=== PATIENT | female | born 1945 | race Caucasian/White ===

== ENCOUNTER → 2017-11-27 | Outpatient (CLI) | payer OTHER ==
[~2017-11-27] MED LIST: AVALIDE 300-121 EACH PO; CARVEDILOL6.25 MG PO; LEVO-T25 MCG PO; ZOCOR40 MG PO
== END | disposition home or self-care (01) ==
LOC: EKG 15:37
DX: K57.20 Diverticulitis of large intestine with perforation and abscess without bleeding (principal); Z01.810 Encounter for preprocedural cardiovascular examination

== ENCOUNTER 2017-11-28 10:00 | Inpatient (IN) | payer OTHER ==
[~2017-11-28] VITALS: Ht 152.4 cm; Wt 63.5 kg
[2017-11-28] MEDS ORDERED: AVALIDE 300-121 EACH PO (12:23)
[2017-11-28] MEDS ORDERED: CARVEDILOL6.25 MG PO (12:23)
[2017-11-28] MEDS ORDERED: ZOCOR40 MG PO (12:23)
[2017-11-28] MEDS ORDERED: LEVO-T25 MCG PO (12:24)
== END 2017-12-08 16:03 | disposition home or self-care (01) | DRG 331 ==
LOC: EDUNIT# 10:00 → O/R 12-05 05:15 → SURG 12-05 05:15
PROVIDERS: Colon & Rectal Surgery
PROC: 0DTN4ZZ Resection of Sigmoid Colon, Percutaneous Endoscopic Approach (ICD-10-PCS; principal; 2017-12-05 07:00)
DX: K57.32 Diverticulitis of large intestine without perforation or abscess without bleeding (principal)

== ENCOUNTER 2019-01-04 09:07 | Day surgery (SDC) | payer OTHER | END 2019-01-04 14:05 | disposition home or self-care (01) | LOC: AMB-ENDOS 09:07 | DX: K64.1 Second degree hemorrhoids (principal); K92.1 Melena ==

== ENCOUNTER 2021-08-04 07:29 | Outpatient (CLI) | payer OTHER | END 2021-08-04 07:30 | disposition home or self-care (01) | LOC: NUCLEAR 07:29 | PROVIDERS: ATTEND Internal Medicine Gastroenterology | DX: K81.1 Chronic cholecystitis (principal) | CPT/HCPCS: 78226; A9537; J2805 ==